=== PATIENT | female | born 1945 | race Caucasian/White ===

== ENCOUNTER 2020-08-17 05:46 | Emergency (ER) | payer OTHER ==
[~2020-08-17] VITALS: Ht 167.6 cm; Wt 69.9 kg
[2020-08-17 05:51] VITALS: Ht 167.6 cm; Wt 69.9 kg
[2020-08-17 08:20] VITALS: BP 161/80
== END 2020-08-17 08:20 | disposition home or self-care (01) ==
LOC: ED 05:46
DX: R30.0 Dysuria (principal); R10.2 Pelvic and perineal pain; R39.15 Urgency of urination; I10 Essential (primary) hypertension; E78.00 Pure hypercholesterolemia, unspecified